=== PATIENT | female | born 1990 | race Caucasian/White ===

== ENCOUNTER 2022-11-24 21:53 | Emergency (ER) | payer OTHER ==
[2022-11-24 22:04] VITALS: BP 119/81; PULSE 60; RESP 18; TEMP 98.3; BMI 23.8
== END 2022-11-24 22:47 | disposition home or self-care (01) ==
LOC: FER 21:53
DX: M79.641 Pain in right hand (principal); S63.637A Sprain of interphalangeal joint of left little finger, initial encounter; W23.0XXA Caught, crushed, jammed, or pinched between moving objects, initial encounter
CPT/HCPCS: 99282-25

== ENCOUNTER 2023-08-19 10:12 | Emergency (ER) | payer OTHER ==
[2023-08-19 10:25] VITALS: BP 126/85; PULSE 66; RESP 18; TEMP 98.6; BMI 21.5
== END 2023-08-19 11:24 | disposition home or self-care (01) ==
LOC: FER 10:12
DX: M25.561 Pain in right knee (principal); M25.522 Pain in left elbow; S80.211A Abrasion, right knee, initial encounter; S80.212A Abrasion, left knee, initial encounter; W22.8XXA Striking against or struck by other objects, initial encounter; Y04.0XXA Assault by unarmed brawl or fight, initial encounter
CPT/HCPCS: 99282-25